=== PATIENT | female | born 1980 | race Caucasian/White ===

== ENCOUNTER 2016-04-24 07:04 | Inpatient (IN) | payer BC ==
[2016-04-24] MEDS ORDERED: ceFOXitin 2 GM IVPREMIX* 2 GM/50 ML BAG ONE (08:06)
[2016-04-24] MEDS ORDERED: Sodium Citrate/Citric Acid* 15 ML UDC ONE (08:06)
[2016-04-24] MEDS ORDERED: Morphine PF AMP (0.5MG/ML)* 5 MG/10 ML AMP ONE (08:09)
[2016-04-24] MEDS ORDERED: Midazolam* 1 MG/ML 5 ML VIAL (5 MG) ONE (08:09)
[2016-04-24] MEDS ORDERED: fentaNYL* 50 MCG/ML 2 ML VIAL (100 MCG VIAL) ONE (08:09)
[2016-04-24] MEDS ORDERED: KETAMINE HCL* 50 MG/ML 10 ML VIAL ONE (08:09)
[2016-04-24] MEDS ORDERED: Famotidine IV* 10 MG/ML 2 ML (20 mg) ONE (08:12)
[2016-04-24] MEDS ORDERED: ceFOXitin 2 GM IVPREMIX* 2 GM/50 ML BAG IVPB ONE (08:16)
[2016-04-24] MEDS ORDERED: Sodium Citrate/Citric Acid* 15 ML UDC PO ONE (08:17)
[2016-04-24 08:42] LABS: Hematocrit 34 % (35-47); Hemoglobin 11.3 g/dl (12.0-16.0); Mean Corpuscular HGB Conc 33 g/dl (31-36); Mean Corpuscular Hemoglobin 28 pg (27-31); Mean Corpuscular Volume 85 fL (80-97); Mean Platelet Volume 8 um3 (7.4-10.4); Red Blood Count 4.01 10^6/ul (4.0-5.4); Red Cell Distribution Width 15 % (10.5-15); White Blood Count 15.3 10^3/ul (3.5-10.8)
[2016-04-24] MEDS ORDERED: PROCHLORPERAZINE INJ 5 MG/ML 2 ML VIAL IV PRN ×2 (08:59→09:04)
[2016-04-24] MEDS ORDERED: Ondansetron INJ* 2 MG/ML VIAL IV PRN ×2 (08:59→09:04)
[2016-04-24] MEDS ORDERED: Scopolamine 1.5 mg* PATCH ONE (09:00)
[2016-04-24] MEDS ORDERED: Buffered Lidocaine 1% SYRIN* 3 ML/SYR SYRINGE INTRADERM ONE (09:02)
[2016-04-24] MEDS ORDERED: Famotidine IV* 10 MG/ML 2 ML (20 mg) IV ONE (09:02)
[2016-04-24] MEDS ORDERED: Naloxone* 0.4 MG/ML 1 ML VIAL IV PRN (09:04)
[2016-04-24] MEDS: Levothyroxine TAB* 50 MCG TAB PO SCH (09:12)
[2016-04-24] MEDS ORDERED: EPHEDrine (Pressors)* 50 MG/ML VIAL ONE (09:51)
[2016-04-24] MEDS ORDERED: Dexamethasone IV* 4 MG/ML 1 ML (4 MG) ONE (09:51)
[2016-04-24] MEDS ORDERED: Ondansetron INJ* 2 MG/ML VIAL ONE (09:51)
[2016-04-24] MEDS ORDERED: OXYTOCIN* 10 UNITS/ML 1 ML VIAL ONE (09:59)
[2016-04-24] MEDS: oxyCODONE/Acetamin 5/325 MG* TAB PO PRN ×3 (11:17→21:12)
[2016-04-24] MEDS: fentaNYL* 50 MCG/ML 2 ML VIAL (100 MCG VIAL) IV PRN ×2 (11:31→11:37)
[2016-04-24] MEDS: Heparin VIAL(*) 5000 UNITS/ML VIAL (FIVE THOUSAND) SUBCUT SCH (12:23)
[2016-04-24] MEDS ORDERED: Witch Hazel PAD* JAR TOPICAL PRN (13:02)
[2016-04-24] MEDS ORDERED: Glycerin ADULT SUPP PR PRN (13:02)
[2016-04-24] MEDS ORDERED: Zolpidem TAB* 5 MG PO PRN (13:02)
[2016-04-24] MEDS ORDERED: Acetaminophen TAB* 325 MG PO PRN (13:02)
[2016-04-24] MEDS ORDERED: Dibucaine 1% 28.35 GM TUBE PR PRN (13:02)
[2016-04-24] MEDS ORDERED: Morphine INJ* 10 MG/ML 1 ML SYRINGE ONE (13:07)
[2016-04-24] MEDS ORDERED: Morphine INJ* 10 MG/ML 1 ML SYRINGE IV PRN (13:09)
[2016-04-24] MEDS: Nystatin SUSPENSION* 100000 UNITS/ML 5 ML UDC PO SCH ×3 (15:13→21:11)
[2016-04-24] MEDS: Docusate CAP* 100 MG PO SCH ×2 (15:13→21:12)
[2016-04-24] MEDS: Ibuprofen TAB* 600 MG PO PRN ×2 (15:13→21:12)
[2016-04-24] MEDS ORDERED: diPHENhydraMINE PO* 25 MG ONE (17:22)
[2016-04-24] MEDS ORDERED: diPHENhydraMINE PO* 25 MG PO PRN (17:31)
[2016-04-24] MEDS ORDERED: Nalbuphine* 20 MG/ML 1 ML VIAL IV PRN (17:31)
[2016-04-24] MEDS: Simethicone CHEW TAB* 80 MG PO SCH ×2 (21:12)
[2016-04-25] MEDS ORDERED: oxyCODONE/Acetamin 5/325 MG* TAB PO PRN
[2016-04-25] MEDS: Heparin VIAL(*) 5000 UNITS/ML VIAL (FIVE THOUSAND) SUBCUT SCH ×2 (00:07→11:51)
--- NOTE | 2016-04-25 02:23 | OP ---
CONTINUATION ADDENDUM NOW INCLUDED ON THIS REPORT DATE OF OPERATION: 04/24/16 - ROOM #MCHOB-113 DATE OF : 80 SURGEON: Claudio Cano MD KNITTER HELPER: Dr. Roberts. ANESTHESIOLOGIST: Dr. Cooper. ANESTHESIA: Spinal. PRE-OP DIAGNOSIS: 40 weeks and 6 days gestation, history of a prior , spontaneous rupture of membranes, meconium. The patient elects for repeat C- section. POST-OP DIAGNOSIS: 40 weeks and 6 days gestation, history of a prior , spontaneous rupture of membranes, meconium. The patient elects for repeat C- section. OPERATIVE PROCEDURE: Repeat section. ESTIMATED BLOOD LOSS: 600 cc. URINE OUTPUT: 400 cc clear urine. FINDINGS: Viable male in the vertex presentation, meconium stained fluid. The baby was vigorous. The Apgars were 9 and 9. The uterus appeared normal. The ovaries and fallopian tubes appeared normal bilaterally. There was a contracted scar from the prior abdominoplasty. It was especially scarred in the midline. The patient reports a history of the scar opening postoperatively. COMPLICATIONS: None. COUNTS: Sponge, lap and needle count correct x2 and the patient was brought to recovery room awake and in stable condition with a Jensen catheter draining clear urine and sequential compression devices activated. DESCRIPTION OF PROCEDURE: The patient was brought to the operating room. Once spinal anesthesia was found to be adequate, a Jensen catheter was placed under sterile conditions. The patient was prepped and draped in the usual sterile fashion in the dorsal supine position with a leftward tilt. The spinal was tested with Allis clamps and found to be adequate. A Pfannenstiel skin incision was made. This was carried down to the underlying layer of fascia. The fascia was incised in the midline and the fascial incision was extended laterally using the Silva scissors. The fascia was grasped with the Delphine clamps and the rectus muscle was dissected using sharp and blunt dissection. The rectus muscle was in the midline. The peritoneum was identified, tented up and entered with the Metzenbaum scissors. The peritoneal incision was extended superiorly and anteriorly with good visualization of the bladder. The bladder blade was inserted. The vesicouterine peritoneum was identified and a bladder flap was created. The bladder blade was reinserted. A low flap transverse incision was made on the uterus to the level of the membrane. The uterine incision was extended bluntly. The infant was delivered atraumatically from the vertex presentation. The vertex was floating. The baby was vigorous. The cord was milked. The cord was clamped and then cut and the infant was handed off to the waiting webmethods consultant, Dr. Desir. Apgars were 9 and 9. The placenta was delivered. The uterus was exteriorized. Uterus was cleared of all clots and debris and the uterine incision was repaired using 0 Vicryl in a running lock fashion. A second layer of the same suture was used to imbricate and obtain excellent hemostasis. The ovaries and fallopian tubes were examined and found to be normal. There was a large amount of decidual reaction on the posterior surface of the uterus more so on the right than the left. The abdomen and pelvis were copiously irrigated with warm normal saline. The uterus was returned to the pelvis and the gutters were cleared of clots of debris and again the uterine incision was examined and found to be hemostatic. The peritoneum was closed using 3-0 Vicryl. The subfascial layer was examined and found to be hemostatic. The fascia was closed using 0 Vicryl. The subcutaneous tissue was irrigated. Any small bleeders were cauterized with the Bovie. CONTINUATION ADDENDUM: The lower end of the skin was found to be very scarred and contracted. The scar was undermined to try to free the skin as best as possible. Four interrupted sutures of 3-0 Vicryl were placed in the subcutaneous tissue to help close the space and reapproximate the skin. The skin was then closed with 4-0 Monocryl in a subcuticular fashion from each angle to the midline half way on both sides, so there were two subcu 4-0 Monocryl sutures that meet in the midline. Then, 8 jayant were placed, 2 at the right angle of the incision and the remaining 6 in the midline to also help reapproximate the skin edges because of the scarring on the bottom edge. Mastisol was applied. Steri- Strips were applied and then a dressing was applied. [id number]/CPS #: [id number] A- [id number]/CPS #: [id number] WILIAN
--- NOTE | 2016-04-25 02:57 | OP ---
OPERATIVE REPORT:* ADDENDUM: The fascia was closed using 0 Vicryl in a running locked fashion. The subcutaneous tissue was irrigated. Any small bleeders were cauterized with the Bovie. The lower end of the skin was found to be very scarred and contracted presumably from the prior surgery. The scar was undermined to try to free up on the skin as best as possible. Four interrupted sutures of 3-0 Vicryl were placed in the subcu tissue to help close the space and reapproximate the skin. The skin was then closed with 4-0 Monocryl in a subcuticular fashion from each angle to the midline half way on both sides, so there were two subcu 4-0 Monocryl sutures that meet in the midline. Then, 8 jayant were placed, 2 at the right angle of the incision and the remaining 6 in the midline to also help reapproximate the skin edges because of the scarring on the bottom edge. The bottom end of the incision was so contracted and so densely scarred down. Then, Mastisol was applied. Steri- Strips were applied where the subcu sutures were and then a pressure dressing was applied. [id number]/[facility] #: [id number] WILIAN
[2016-04-25] MEDS ORDERED: Famotidine TAB* 20 MG PO SCH (03:00)
[2016-04-25] MEDS: Ibuprofen TAB* 600 MG PO PRN ×4 (03:50→21:06)
[2016-04-25] MEDS: oxyCODONE/Acetamin 5/325 MG* TAB PO PRN ×4 (03:52→19:18)
[2016-04-25] MEDS: Levothyroxine TAB* 50 MCG TAB PO SCH (05:33)
[2016-04-25] MEDS ORDERED: Famotidine TAB* 20 MG PO PRN (05:42)
[2016-04-25 07:49] LABS: Hematocrit 30 % (35-47); Hemoglobin 9.8 g/dl (12.0-16.0); Mean Corpuscular HGB Conc 33 g/dl (31-36); Mean Corpuscular Hemoglobin 28 pg (27-31); Mean Corpuscular Volume 85 fL (80-97); Mean Platelet Volume 8 um3 (7.4-10.4); Red Blood Count 3.48 10^6/ul (4.0-5.4); Red Cell Distribution Width 15 % (10.5-15); White Blood Count 14.9 10^3/ul (3.5-10.8)
--- NOTE | 2016-04-25 08:04 | PN ---
Progress Note - Progress Note Note: Anesthesia duramorph followup -[facility] neuro ok some itching last PM -NV, VSS decent pain control. s/p CS continue oral meds
[2016-04-25] MEDS: Simethicone CHEW TAB* 80 MG PO SCH ×4 (08:52→21:06)
[2016-04-25] MEDS: Docusate CAP* 100 MG PO SCH ×3 (08:52→21:06)
[2016-04-25] MEDS: Ferrous Gluconate TAB* 324 MG TAB PO SCH ×3 (10:38→21:06)
[2016-04-25] MEDS: Nystatin SUSPENSION* 100000 UNITS/ML 5 ML UDC PO SCH ×4 (10:39→21:06)
[2016-04-25] MEDS ORDERED: Ferrous Gluconate TAB* 324 MG TAB ONE (14:58)
[2016-04-25 19:34] VITALS: BP 117/68
[2016-04-26] MEDS: oxyCODONE/Acetamin 5/325 MG* TAB PO PRN ×4 (00:08→13:22)
[2016-04-26] MEDS: Heparin VIAL(*) 5000 UNITS/ML VIAL (FIVE THOUSAND) SUBCUT SCH (00:08)
[2016-04-26] MEDS: Ibuprofen TAB* 600 MG PO PRN ×2 (04:13→12:42)
[2016-04-26] MEDS: Levothyroxine TAB* 50 MCG TAB PO SCH (06:19)
[2016-04-26] MEDS: Ferrous Gluconate TAB* 324 MG TAB PO SCH (09:03)
[2016-04-26] MEDS: Nystatin SUSPENSION* 100000 UNITS/ML 5 ML UDC PO SCH (09:03)
[2016-04-26] MEDS: Simethicone CHEW TAB* 80 MG PO SCH (09:03)
[2016-04-26] MEDS: Docusate CAP* 100 MG PO SCH (09:03)
[2016-04-27] MEDS ORDERED: Enoxaparin(*) 40 MG/0.4 ML SYR SUBCUT SCH (07:00)
[2016-04-27] MEDS ORDERED: Scopolomine PATCH Remove* 1 NOTE MISC PATCH OFF ONE (09:00)
== END 2016-04-26 15:39 | disposition home or self-care (01) | DRG 540 ==
LOC: MCHOBOUT 07:04 → MCHOB 07:39
PROVIDERS: ADMIT Obstetrics & Gynecology; ATTEND Obstetrics & Gynecology
PROC: 10D00Z1 Extraction of Products of Conception, Low, Open Approach (ICD-10-PCS; principal; 2016-04-24 08:39)
DX: O34.211 Maternal care for low transverse scar from previous cesarean delivery (principal); F32.9 Major depressive disorder, single episode, unspecified; O09.523 Supervision of elderly multigravida, third trimester; Z37.0 Single live birth; Z3A.40 40 weeks gestation of pregnancy; O48.0 Post-term pregnancy; O99.820 Streptococcus B carrier state complicating pregnancy; O26.893 Other specified pregnancy related conditions, third trimester; G43.909 Migraine, unspecified, not intractable, without status migrainosus; O99.343 Other mental disorders complicating pregnancy, third trimester; Z91.040 Latex allergy status; Z86.718 Personal history of other venous thrombosis and embolism; Z79.01 Long term (current) use of anticoagulants
CPT/HCPCS: 36415; 85025; 85027; 86850; 86900; 86901; A9270-GY; J0694; J1100; J1644; J2250; J2270; J2405; J2590; J3010

== ENCOUNTER 2017-06-06 16:28 | Observation (INO) | payer BC, OTHER ==
[2017-06-06] MEDS ORDERED: NS 0.9% 1000 ML* 1,000 ML IV ONE (17:46)
[2017-06-06] MEDS ORDERED: Heparin VIAL(*) 5000 UNITS/ML VIAL (FIVE THOUSAND) IV SCH ×2 (18:00→19:00)
[2017-06-06] MEDS ORDERED: Heparin DRIP 25,000 UNITS(*) 25,000 UNITS/500 ML BAG IV SCH ×2 (18:00→18:15)
[2017-06-06 18:15] LABS: ABS Basophils 0 10^3/ul (0-0.2); ABS Eosinophils 0.2 10^3/ul (0-0.6); ABS Lymphocytes 1.8 10^3/ul (1.0-4.8); ABS Monocytes 0.5 10^3/ul (0-0.8); ABS Neutrophils 5.7 10^3/ul (1.5-7.7); ABS Nucleated RBC 0 10^3/ul; Eosinophil % 2.1 % (0-6); Hematocrit 47 % (35-47); Hemoglobin 15.6 g/dl (12.0-16.0); Mean Corpuscular HGB Conc 33 g/dl (31-36); Mean Corpuscular Hemoglobin 30 pg (27-31); Mean Corpuscular Volume 90 fL (80-97); Nucleated Red Blood Cells % 0.1; Platelet Count 367 10^3/ul (150-450); Red Blood Count 5.18 10^6/ul (4.0-5.4); Red Cell Distribution Width 15 % (10.5-15); White Blood Count 8.2 10^3/ul (3.5-10.8)
[2017-06-06 18:34] LABS: EGFR Non-African American 93.1 (>60)
[2017-06-06] MEDS ORDERED: Iohexol 350* (CONTRAST) 500 ML MDV IV ONE (19:12)
--- NOTE | 2017-06-06 19:57 | RAD ---
Indication: Known PE with progressive symptoms. Contrast: Administered 70.3 ml of OMNIPAQUE 350 mg/ml CTA of the chest was performed after IV contrast administration. Coronal and sagittal reconstructed images were obtained. The pulmonary arterial tree is well opacified. There is a small pulmonary emboli in the lingular segment branch of the left upper lobe pulmonary artery. Filling defects are noted in the segmental branches of the right lower lobe pulmonary artery. No extension into the lobar or main pulmonary artery is noted. The aorta demonstrates no evidence of thoracic aortic dissection. The heart demonstrates no pericardial effusion. The trachea and major bronchi appear patent. Dependent changes are noted in the lung mcmahon. There is no mediastinal or hilar adenopathy. The axilla demonstrates no adenopathy. The visualized abdominal organs are unremarkable. IMPRESSION: Filling defects are noted in place segmental branch of the right lower lobe pulmonary artery as well as the lingular segmental branch of the left upper lobe pulmonary artery. There is no extension into the main or lobar pulmonary arteries.
[2017-06-06] MEDS ORDERED: Ondansetron INJ* 2 MG/ML VIAL IV PRN (20:45)
[2017-06-06] MEDS ORDERED: Acetaminophen TAB* 325 MG PO PRN (20:45)
--- NOTE | 2017-06-06 20:45 | RAD ---
Indication: Right neck pain evaluate for carotid artery dissection. CT of the brain was performed without IV contrast. Ventricular structures are midline. No midline shift is noted. The extra-axial spaces are unremarkable. There is no evidence of intracranial mass or hemorrhage. There is air-fluid level in the left maxillary sinus suggestive of left maxillary sinusitis. Contrast: Administered 80.0 ml of OMNIPAQUE 350 mg/ml CTA of the neck and head was performed after IV contrast administration. Coronal and sagittal reconstructed images were obtained. The origins of the great vessels are unremarkable. The right common carotid and left common carotid artery demonstrates no intimal wall thickening or plaque. Both internal carotid arteries appear normal in caliber. No evidence of carotid artery dissection is noted. The vertebral arteries demonstrate a separate origin of the left vertebral artery from the aortic arch. No significant stenosis is noted. Dominant right vertebral artery is noted. No evidence of vertebral artery dissection is noted. The soft tissues of the neck demonstrates scattered lymph nodes in the neck without abnormal adenopathy. The lung apices are grossly unremarkable. CTA of the head demonstrates normal bifurcation of the intracranial carotid arteries. A1 and M1 segments are unremarkable. No branch occlusion is noted. No aneurysmal dilatation is noted. No branch occlusion is noted. The basilar artery and posterior cerebral arteries are unremarkable with no evidence of branch occlusion or aneurysmal dilatation. IMPRESSION: No evidence of carotid artery dissection is noted. The cranial circulation demonstrates no aneurysmal dilatation. No evidence of branch occlusion is identified.
[2017-06-06] MEDS ORDERED: Melatonin (NF) 3 MG TAB PO PRN (20:48)
[2017-06-06] MEDS ORDERED: diPHENhydraMINE PO* 25 MG PO PRN (20:48)
[2017-06-06] MEDS: Rivaroxaban TAB(*) 15 MG PO SCH (22:39)
--- NOTE | 2017-06-06 22:51 | HP ---
HISTORY AND PHYSICAL: DATE OF ADMISSION: 06/06/17 PRIMARY CARE PROVIDER: None. ATTENDING PHYSICIAN WHILE IN THE HOSPITAL: Warren Villalta MD* (report dictated by Ame Sparks NP) CHIEF COMPLAINT: 1. Chest pain. 2. "I have PE." HISTORY OF PRESENT ILLNESS: Mrs. Macdonald is a 36-year-old female patient. She has a history of sarcoidosis, history of DVT in the past, she was on Xarelto for 2 years and states she has been off for now 2 years as well. She states that she has been having right leg pain intermittently for the last couple months and she has been delaying getting care and having it checked out. She was hoping that it will get better on its own and she thought may be it was muscle cramp; however, she felt that because it was not getting any better, she should be evaluated for DVT because she has had one in the past. She went to [facility] last night, told them that she was having leg pain. She said that she also in the last week or so has been having difficulty taking a deep breath. It has been hurting. She has been having sharp, stabbing pain in the right side. There has been tightness in her right neck. She has been having some dyspnea with exertion. They were concerned. They did ultrasound of the lower extremities. There was no DVT there noted, but they did do a CTA of the chest, which did show blood clots. It showed PE. She was started on heparin drip there. Unfortunately, she did sign out AMA. She was given 1 dose of Xarelto and she signed out because she needed child life specialist. She came back to the ER today because she knew she had the PE. She said that she wanted to be admitted now. She has child life specialist. She states that she has been having the intermittent chest discomfort and again dyspnea with exertion and she was concerned because she had not been on any blood thinners. So, she came in to the ED. Again, here was found to have bilateral PEs in the lower lobes of left and the right. She said she does have a significant family history of factor V Leiden and she has had a DVT in the past. She denies any recent trips or travel. No trauma. No recent surgeries. She was again evaluated here and PEs were found and we were asked to evaluate for admission. PAST MEDICAL HISTORY: Significant for: 1. Sarcoidosis. 2. History of DVT. PAST SURGICAL HISTORY: 1. She has had . 2. She has had a breast augmentation and she also had stomach augmentation as well. HOME MEDICATIONS: According to the list that she provided include: 1. Benadryl 25 mg p.o. daily as needed. 2. Melatonin 3 mg at bedtime as needed. 3. Ibuprofen 200 mg every 6 hours as needed. ALLERGIES TO MEDICATIONS: Include LATEX. FAMILY HISTORY: She said her father did have a PE and she states she has siblings with factor V and to her knowledge, father does not have it. She states she thinks she has been tested negative previously. She states her mother is healthy. SOCIAL HISTORY: She does smoke. She smokes about 6 cigarettes 3 times a week. She occasionally drinks alcohol. She does not wish to appoint a healthcare proxy at this point. 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 REVIEW OF SYSTEMS: There is no documented fever. She denied having any significant weight change. There was no double vision. She denies having any ear discharge. There is no rhinorrhea. No sore throat. There is chest pain from my HPI. She states it hurts to take a deep breath. She denies having any abdominal pain. There was no nausea. No vomiting. There is no dysuria. There is no frequency. There was no seizure. There was no loss of consciousness. No pruritus and no skin ulcerations. Review of 14 systems was completed, all others negative. PHYSICAL EXAMINATION GENERAL: At this time, Mrs. Macdonald is a 36-year-old female patient. She appears to be well nourished, well developed. She is sitting in the ED stretcher. She does not appear to be in any acute distress. VITAL SIGNS: Blood pressure 122/72 with a pulse 81, respirations 18, O2 sat 99% , temperature 98.8. HEENT: Head: Atraumatic, normocephalic. Eyes: EOMs are intact. Sclerae anicteric and not pale. Throat: Oral mucosa appears to be moist. No oropharyngeal erythema. NECK: Supple. LUNGS: Clear to auscultation bilaterally. There are no wheezes, rales, or rhonchi. HEART: Sounds S1, S2. Regular rate and rhythm. No murmurs, rubs, or gallops. ABDOMEN: Soft, it was flat, it was nontender. Bowel sounds were present. EXTREMITIES: Pulses were 2+ throughout. She is moving all 4 extremities with 5 /5 strength. NEUROLOGIC: She is awake. She is alert. She is oriented x3. Tongue is midline. Lumber Press Operator were equal. No gross focal deficits. SKIN: Intact. LABORATORY DATA/DIAGNOSTIC STUDIES: WBC of 8.2, RBC of 5.18, hemoglobin of 15.6, hematocrit of 47, platelet count of 367. The PTT was 33. She had a sodium of 138, potassium 3.6, chloride of 104, bicarb of 25, BUN 8, creatinine 0.71, glucose 90. Lactate 1.1. Calcium 9.4. Total bili 0.5, AST 14, ALT 10, alk phos 45. Troponin 0. Repeat troponin was 0. Albumin 4.4. She did have a head CTA obtained today, impression: No evidence of carotid artery dissection. The cranial circulation demonstrates no aneurysmal dilation. No evidence of branch occlusion was identified. She had chest thorax CTA, which revealed filling defects are noted in the segmental branch of the right lower lobe, pulmonary artery as well as the lingular segment, total branch of the left upper lobe pulmonary artery, there is no extension into the main or lobar pulmonary arteries. She did have an EKG obtained today as well, which showed a normal sinus rhythm with a rate of 75, no ST elevations or T wave inversions. Old medical records were reviewed. ASSESSMENT AND PLAN: Mrs. Macdonald is a 36-year-old female patient coming in to the ED today with complaints of chest discomfort, dyspnea on exertion. On evaluation, was found to have pulmonary embolism, which she knew about from [facility]. She will be admitted under observation status for: 1. Pulmonary embolism. At this point again, she is hemodynamically stable. She was started on heparin drip here in our ER. I am going to stop the drip, wait 30 minutes and start her on Xarelto 15 mg p.o. b.i.d. She is probably going to need to be on lifelong anticoagulation. 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 She said that she will follow up when she is discharged as she should be tested again for a hypercoagulable state. Unfortunately, I cannot send it off now due to the recent heparin. I will get an echo. I will cycle her trops. 2. Sarcoidosis. It is in remission. We will continue to follow. 3. History again of deep venous thrombosis. She is going to be placed on therapeutic Xarelto. 4. Fluids, electrolytes, and nutrition. She can have a regular diet. 5. Code status. Full code. TIME SPENT: Time spent on admission 60 minutes, greater than half the time spent [id number] with the patient obtaining my history and physical; other half time spent going over the plan of care with the patient and implementing plan of care. I did discuss the plan of care with my attending, Dr. Villalta; he is in agreement. AME SPARKS NP [id number]/[facility] #: [id number] WILIAN
[2017-06-07 06:08] LABS: ABS Basophils 0.1 10^3/ul (0-0.2); ABS Eosinophils 0.2 10^3/ul (0-0.6); ABS Lymphocytes 2.6 10^3/ul (1.0-4.8); ABS Monocytes 0.6 10^3/ul (0-0.8); ABS Neutrophils 4.1 10^3/ul (1.5-7.7); ABS Nucleated RBC 0 10^3/ul; Eosinophil % 2.9 % (0-6); Hematocrit 39 % (35-47); Hemoglobin 13.1 g/dl (12.0-16.0); Lymphocyte % 34.8 % (25-47); Mean Corpuscular HGB Conc 33 g/dl (31-36); Mean Corpuscular Hemoglobin 30 pg (27-31); Mean Corpuscular Volume 90 fL (80-97); Mean Platelet Volume 6.6 um3 (7.4-10.4); Nucleated Red Blood Cells % 0; Platelet Count 321 10^3/ul (150-450); Red Blood Count 4.38 10^6/ul (4.0-5.4); Red Cell Distribution Width 16 % (10.5-15); White Blood Count 7.6 10^3/ul (3.5-10.8)
[2017-06-07 06:27] LABS: EGFR Non-African American 94.7 (>60)
[2017-06-07 06:35] LABS: INR 1.26 (0.77-1.02)
[2017-06-07] MEDS: Rivaroxaban TAB(*) 15 MG PO SCH (08:26)
--- NOTE | 2017-06-07 09:21 | ECHO ---
Patient: BRITTNEY WELSH [facility] Rec#: [id number] : 1980 Date: 06/07/2017 Age: 36y Height: 167.64 cm / 66.0 in Weight: 79.38 kg / 175.0 lbs Sex: F BSA: 1.89 Room#: 431 Admit Date#: 06/06/2017 Type: Inpatient Referring: Todd Tena NP Reading: Kota Trinidad MD Vamp Wetter: Homa Woodward RDCS CC: Angelic Carbajal, DO Transthoracic Echocardiogram Indication: Pulmonary Embolism BP: 124/68 HR: 75 Rhythm: NSR Findings History: DVT with PE, sarcoidosis. Technical Comments: The study quality is good. Completed at 0845. Left Ventricle: The left ventricular chamber size is normal. There is no left ventricular hypertrophy. Left ventricular systolic function is at the lower limits of normal. VIsually estimated LVEF is 50 %. Normal left ventricular diastolic filling is observed. Left Atrium: The left atrium is mildly dilated. Right Ventricle: Moderator Band present. The right ventricle is slightly dilated. The right ventricular global systolic function is normal. Right Atrium: The right atrial cavity size is normal. Aortic Valve: The aortic valve is trileaflet. There is no evidence of aortic valve thickening. There is no evidence of aortic regurgitation. There is no evidence of aortic stenosis. Mitral Valve: The mitral valve leaflets do not appear thickened. There is a trace of mitral regurgitation. There is no evidence of mitral stenosis. Tricuspid Valve: The tricuspid valve leaflets are normal. There is trace to mild tricuspid regurgitation. The right ventricular systolic pressure is estimated at 26 mmHg. No pulmonary hypertension is noted. There is no tricuspid stenosis. Pulmonic Valve: The pulmonic valve appears normal. There is mild pulmonic regurgitation. There is no pulmonic stenosis. Pericardium: There is no significant pericardial effusion. Aorta: There is no dilatation of the ascending aorta. There is no dilatation of the aortic arch. The aortic root is normal in size. Pulmonary Artery: The main pulmonary artery appears normal. Venous: The inferior vena cava is dilated. There is a greater than 50% respiratory change in the inferior vena cava dimension. Conclusions The left ventricular chamber size is normal. Left ventricular systolic function is at the lower limits of normal. VIsually estimated LVEF is 50 %. Normal left ventricular diastolic filling is observed. The right venricle is slightly increased in size with normal systolic function. The left atrium is mildly dilated. No significant valvular disease: There is a trace of mitral regurgitation. There is trace to mild tricuspid regurgitation. There is mild pulmonic regurgitation. Compared to report of study from 03/29/2007 overall LV systolic function is less (was visually estimated at 65%), the mitral and pulmonic regurgitation are now seen , but not significant. Measurements Name Value Normal Range RVIDd (AP) 2D 3 cm (0.9 - 2.6) RVDdMajor (2D) 4.1 cm (2.2 - 4.4) RAd ISD 4CH 4.9 cm (3.4 - 4.9) RA (A4C)W 4.1 cm (2.9 - 4.6) IVSd (2D) 1 cm (0.6 - 1) LVPWd (2D) 0.9 cm (0.6 - 1) LVIDd (2D) 4.9 cm (3.6 - 5.4) LVIDs (2D) 3.1 cm - LV FS (2D) 36 % (25 - 45) EF Teichholz (2D) 66 % - Aortic Annulus 1.9 cm (1.4 - 2.6) Ao root diameter (2D) 2.5 cm (2.1 - 3.5) Ascending Ao 2.5 cm (2.1 - 3.4) Aortic arch 2.2 cm (1.8 - 3.4) LA dimension (AP) 2D 3.8 cm (2.3 - 3.8) LAd ISD 4CH 4.8 cm (2.9 - 5.3) LA ISD 4CH W 4.6 cm (2.5 - 4.5) Name Value Normal Range LA ESV SP 4CH (A/L) 68 ml - LA ESV SP 2CH (A/L) 56 ml - LA ESV BP (A/L) 66 ml - LA ESV BP (A/L) index 35 ml/m2 - LA ESV SP 4CH (MOD) 61 ml - LA ESV SP 2CH (MOD) 50 ml - Name Value Normal Range MV E-wave Vmax 0.93 m/sec - MV deceleration time 213.1 msec - MV A-wave Vmax 0.43 m/sec - MV E:A ratio 2.19 ratio - LV septal e' Vmax 0.11 m/sec - LV lateral e' Vmax 0.14 m/sec - LV E:e' septal ratio 8.45 ratio - LV E:e' lateral ratio 6.64 ratio - Name Value Normal Range AV Vmax 1.31 m/sec - AV VTI 29.07 cm - AV peak gradient 6.9 mmHg - AV mean gradient 3.91 mmHg - LVOT Vmax 1.11 m/sec - LVOT VTI 23.33 cm - LVOT peak gradient 5 mmHg - LVOT mean gradient 2.7 mmHg - KANE Vmax 0.9 m/sec - Name Value Normal Range TR Vmax 2.1 m/sec - TR peak gradient 18 mmHg - RAP 8 mmHg - RVSP 26 mmHg - IVC diameter 2.4 cm - Name Value Normal Range PV Vmax 0.85 m/sec - PV peak gradient 2.94 mmHg -
[2017-06-07 13:06] VITALS: BP 117/72
--- NOTE | 2017-06-07 13:38 | ED ---
Donnell Jeffrey Nilda, scribed for Maksim Carmen MD on 06/06/17 at 1739 . HPI Chest Pain - HPI Summary HPI Summary: This patient is a 36 year old F presenting to [facility] with a chief complaint of constant CP with R-neck burning pain since last night. The patient rates the pain 4/10 in severity. Symptoms aggravated by deep breaths and alleviated by nothing. Patient reports SOB (past few months), palpitations, and mild blurry vision. Pt states 1 week ago she had severe gas cramps for a few hours. Patient denies speech impairment, confusion, and unsteadiness. Pt states yesterday she was at [place] where she was treated with Heparin at 1800 for a few hours, which aggravated neck pain. Pt states she was Dx with PE on right last night. She states she s/o AMA from [place] to take care of her kids and was given Xarelto (taken at 0050). She denies recent sick contacts and recent prolonged travel. PMHx includes DVT right leg, Sarcoidosis, and PVCs. Pt was on Xarelto a few years ago for DVT which was discontinued. Medications include Paraguard IUD. - History of Current Complaint Chief Complaint: EDBleedingDisorder Time Seen by Provider: 06/06/17 17:05 Hx Obtained From: Patient Hx Last Menstrual Period: 10/11/14 Onset/Duration: Started Days Ago, Still Present Timing: Constant Current Severity: Moderate Pain Intensity: 4 Pain Scale Used: 0-10 Numeric Character: Burning, Fast Aggravating Factor(s): Deep Breaths Alleviating Factor(s): Nothing Associated Signs and Symptoms: Positive: Other: - R-neck pain, gas cramps, SOB, mild blurry vision; negative speech impairment, confusion, unsteadiness - Allergy/Home Medications Allergies/Adverse Reactions: Allergies Allergy/AdvReac Type Severity Reaction Status Date / Time latex Allergy Severe Anaphylatic Verified 06/06/17 16:36 Shock Home Medications: Home Medications Ibuprofen TAB* [Advil TAB*] 200 mg PO Q6H PRN 06/06/17 [History Confirmed ] Melatonin (NF) [Meladox] 3 mg PO BEDTIME PRN 06/06/17 [History Confirmed ] diPHENhydraMINE PO* [Benadryl PO 25 MG TAB*] 25 mg PO DAILY PRN 06/06/17 [ History Confirmed 06/06/17] PMH/Surg Hx/FS Hx/Imm Hx Endocrine/Hematology History: Reports: Hx Thyroid Disease - Synthroid 50mcg daily Denies: Hx Diabetes - Gestational Cardiovascular History: Reports: Hx Deep Vein Thrombosis Denies: Hx Hypertension, Hx Pacemaker/ICD, Hx Peripheral Vascular Disease History: Denies: Hx Dialysis, Hx Renal Disease Musculoskeletal History: Denies: Hx Arthritis, Hx Osteoporosis Sensory History: Denies: Hx Cataracts, Hx Contacts or Glasses, Hx Glaucoma, Hx Hearing Aid Opthamlomology History: Denies: Hx Cataracts, Hx Contacts or Glasses, Hx Glaucoma Neurological History: Denies: Hx Headaches, Hx Seizures, Hx Transient Ischemic Attacks (TIA) Psychiatric History: Reports: Hx Depression Denies: Hx Anxiety, Hx Panic Disorder - Surgical History Surgery Procedure, Year, and Place: L5-S1 LAMINECTOMY AND DISCECTOMY 01/02/20111994 EXOSTOSIS- REMOVAL OF GROWTH ON FEMUR (GROUND OFF OF BONE), 12/24. Popiteal DVT 05/21/14, 2012- tummy tuck and breast lift, tonsillectomy and septo plasty. Infectious Disease History: No Infectious Disease History: Denies: Traveled Outside the [place] in Last 30 Days - Family History Known Family History: Positive: Hypertension, Other - PE (father), [place] - Social History Occupation: Employed Full-time Lives: With Family Alcohol Use: Occasionally Alcohol Amount: 1 glass of wine with dinner Substance Use Type: Reports: None Smoking Status (MU): Light Every Day Tobacco Smoker Type: Cigarettes Length of Time of Smoking/Using Tobacco: smokes 2-3 a week Review of Systems Negative: Fever, Chills Positive: Blurred Vision. Negative: Erythema Negative: Sore Throat Positive: Chest Pain Positive: Shortness Of Breath. Negative: Cough Positive: Abdominal Pain - 1 week ago, resolved. Negative: Vomiting, Nausea Negative: dysuria, hematuria Positive: Other - burning neck pain. Negative: Myalgia, Edema Negative: Rash Neurological: Other - negative dizziness, unsteadiness, speech impairment, confusion All Other Systems Reviewed And Are Negative: Yes Physical Exam - Summary Physical Exam Summary: Constitutional: Well-developed, Well-nourished, Alert. (-) Distressed Skin: Warm, Dry HENT: Normocephalic; Atraumatic Eyes: Conjunctiva normal Neck: Musculoskeletal ROM normal neck. (-) JVD, (-) Stridor, (-) Tracheal deviation Cardio: Rhythm regular, rate normal, Heart sounds normal; Intact distal pulses; The pedal pulses are 2+ and symmetric. Radial pulses are 2+ and symmetric. (-) Murmur Pulmonary/Chest wall: Effort normal. (-) Respiratory distress, (-) Wheezes, (-) Rales Abd: Soft, (-) Tenderness, (-) Distension, (-) Guarding, (-) Rebound Musculoskeletal: (-) Edema Lymph: (-) Cervical adenopathy Neuro: Alert, Oriented x3 Psych: Mood and affect Normal Triage Information Reviewed: Yes Vital Signs On Initial Exam: Initial Vitals Temp Pulse Resp BP Pulse Ox 98.8 F 110 16 150/86 98 06/06/17 16:33 06/06/17 16:33 06/06/17 16:33 06/06/17 16:33 06/06/17 16:33 Vital Signs Reviewed: Yes Diagnostics - Vital Signs Vital Signs Temp Pulse Resp BP Pulse Ox 06/06/17 17:22 92 16 126/86 100 06/06/17 17:00 109 23 99 06/06/17 16:53 98 15 137/80 98 06/06/17 16:52 103 11 98 06/06/17 16:33 98.8 F 110 16 150/86 98 - Laboratory Result Diagrams: 06/06/17 17:45 06/06/17 17:45 Lab Statement: Any lab studies that have been ordered have been reviewed, and results considered in the medical decision making process. - CT CTA Chest/Thorax CT Interpretation Completed By: Radiologist - Filling defects are noted in place segmental branch of the right lower lobe pulmonary artery as well as the lingular segmental branch of the left upper lobe pulmonary artery. There is no extension into the main or lobar pulmonary arteries. Dr. Carmen has reviewed this report. CTA Head CT Interpretation Completed By: Radiologist - No evidence of carotid artery dissection is noted. The cranial circulation demonstrates no aneurysmal dilatation. No evidence of branch occlusion is identified. Dr. Carmen has reviewed this report. - EKG 1748 Cardiac Rate: NL - 72 bpm EKG Rhythm: Sinus Rhythm EKG Interpretation: no STEMI Chest Pain Course/Dx - Course Course Of Treatment: 35 mins CCT. Assessment/Plan: Pt has PE (nonsaddle). - Diagnoses Provider Diagnoses: Pulmonary embolism - Provider Notifications Discussed Care Of Patient With: Todd Tena - Hospitalist Time Discussed With Above Provider: 20:50 Instructed by Provider To: Admit As Inpatient - Critical Care Time Critical Care Time: 30-74 min - 35 mins CCT Discharge - Sign-Out/Discharge Documenting (check all that apply): Discharge/Admit/Transfer - Discharge Plan Condition: Stable Disposition: ADMITTED TO [facility] documentation as recorded by the Donnell acuna Nilda accurately reflects the service I personally performed and the decisions made by , Maksim Carmen MD.
--- NOTE | 2017-06-07 22:55 | DS ---
DISCHARGE SUMMARY: DATE OF ADMISSION: 06/06/17 DATE OF DISCHARGE: 06/07/17 PRINCIPAL DISCHARGE DIAGNOSIS: Pulmonary emboli. SECONDARY DISCHARGE DIAGNOSES: 1. Sarcoidosis. 2. History of deep venous thrombosis. DISCHARGE MEDICATIONS: 1. Xarelto 15 mg b.i.d. for 21 days followed by 20 mg daily. 2. Melatonin 3 mg q.h.s. p.r.n. insomnia. 3. Benadryl 25 mg daily p.r.n. itching or allergy. PHYSICAL EXAMINATION AT THE TIME OF DISCHARGE: Temperature 97.8, heart rate 74 , respiratory rate 16, pulse ox 100% on room air, blood pressure 117/72. General: Alert, well-appearing female, in no distress. She is able to speak in full sentences and uses no accessory muscles. HEENT: Pupils equal, round, and reactive to light. No conjunctival injection. Moist mucosa. Neck: No JVP. No cervical lymphadenopathy. Chest: Regular rate and rhythm. No parasternal heaves or lifts. No murmurs. Chest: Lungs clear bilaterally. Abdomen: Soft, nontender, nondistended. No guarding, no rebound. Extremities: No lower extremity edema. The left and right calves are equal in size. HOSPITAL COURSE BY PROBLEM: 1. PE. A CT angiogram was obtained and showed filling defect in the segmental branch of the right lower lobe PA as well as the lingular segment branch of the left upper lobe PA with no extension into the main or lobar pulmonary arteries. She had no symptoms from this. She simply came to the emergency department because she had recently been diagnosed with a DVT at an outside hospital and she was concerned that she had a PE. A CT angiogram as above did confirm such. She had no oxygen requirement. She was not tachycardic and an echocardiogram showed mild RV dilation. She was given Lovenox in the emergency department and then transitioned to Xarelto, which she tolerated well during this admission. Interestingly, she does have history of DVT several years ago that was thought to be associated with surgery and she was on Xarelto at that time for 2 years, but was discontinued by her base engineer. She has a strong family history of thromboembolism. Her father recently had a saddle embolism with no provoking factors and her sister also has had unprovoked DVT and PE. She has been worked up for Factor V Leiden deficiency and reportedly tested negative. She follows with a base engineer in [place]. She has a Hematology followup scheduled for next month and agrees to keep this appointment. She should be continued to be worked up for a hypercoagulable state given that she had no associated provoking factors; however, she does smoke, which may be contributing. I discussed this extensively with her. 2. Tobacco abuse. Again, this may have contributed to her PE and may be the only provoking factor. She agrees to work on quitting. 3. Sarcoidosis. She says this was diagnosed by bronchoscopy. We do not have these records here, but she has no evidence of flare at this admission radiographically or clinically. DISPOSITION: Ms. Macdonald was discharged to home on 06/07/17. She was instructed to return to the emergency department should she develop any swelling , shortness of breath, palpitations, syncope, chest pain, or bleeding. She has a followup with her base engineer next month. [id number]/[facility] #: [id number] MTDD
== END 2017-06-07 14:27 | disposition home or self-care (01) ==
LOC: ED 16:28 → MEDTELE 20:33
PROVIDERS: ADMIT Internal Medicine; ATTEND Internal Medicine
DX: I26.99 Other pulmonary embolism without acute cor pulmonale (principal); R07.9 Chest pain, unspecified; D86.9 Sarcoidosis, unspecified; Z86.718 Personal history of other venous thrombosis and embolism; I51.7 Cardiomegaly; Z79.01 Long term (current) use of anticoagulants; Z79.899 Other long term (current) drug therapy; F17.210 Nicotine dependence, cigarettes, uncomplicated; R06.09 Other forms of dyspnea
CPT/HCPCS: 36415; 70496; 70498; 71275; 80048; 80053; 83605; 84484; 85025; 85610; 85730; 93005; 93306; 96365; 96375; 99291; G0378; J1644; Q9967

== ENCOUNTER 2020-08-17 07:45 | Inpatient (IN) ==
[2020-08-19] MEDS ORDERED: ceFOXitin 2 GM IVPREMIX 2 GM/50 ML BAG IVPB ONE (21:54)
[2020-08-20] MEDS ORDERED: Lactated Ringers 1000 ml BAG 1,000 ML IV SCH ×2 (06:00→10:00)
[2020-08-20] MEDS ORDERED: Buffered Lidocaine 1% SYRIN 1 ml INTRADERM ONE (06:00)
[2020-08-20] MEDS ORDERED: Sodium Citrate/Citric Acid LIQ 15 ML UDC PO ONE (06:00)
[2020-08-20 06:46] LABS: ABS Basophils 0.1 10^3/ul (0-0.2); ABS Eosinophils 0.1 10^3/ul (0-0.6); ABS Lymphocytes 1.8 10^3/ul (1.0-4.8); ABS Monocytes 0.9 10^3/ul (0-0.8); ABS Neutrophils 9.3 10^3/ul (1.5-7.7); Eosinophil % 1.1 %; Hematocrit 35 % (35-47); Hemoglobin 11.5 g/dL (12.0-16.0); Lymphocyte % 14.6 %; Mean Corpuscular HGB Conc 33 g/dL (31-36); Mean Corpuscular Hemoglobin 28 pg (27-31); Mean Corpuscular Volume 84 fL (80-97); Mean Platelet Volume 8.3 fL (7.4-10.4); Platelet Count 318 10^3/uL (150-450); Red Blood Count 4.14 10^6 /uL (3.70-4.87); Red Cell Distribution Width 21 % (10-15); White Blood Count 12.2 10^3/uL (3.5-10.8)
[2020-08-20 07:01] LABS: Activated Partial Thrombo Time 27.6 seconds (26.0-38.0); INR 0.94 (0.86-1.15)
[2020-08-20] MEDS ORDERED: Morphine PF AMP (0.5MG/ML) 5 MG/10 ML AMP ONE (07:35)
[2020-08-20 07:40] LABS: Urine Benzodiazepine Screen None Detected (None Detect); Urine Cannabinoids Screen Presumptive Positive (None Detect); Urine Opiates Screen None Detected (None Detect)
[2020-08-20] MEDS ORDERED: Phenylephrine 40 mcg/mL 10mL (400mcg) SYRINGE ONE ×2 (07:46→08:31)
[2020-08-20] MEDS ORDERED: EPHEDrine (Pressors) 50 MG/ML VIAL ONE (08:22)
[2020-08-20] MEDS ORDERED: Oxytocin 10 UNITS/ML 1 ML VIAL ONE (08:39)
[2020-08-20 08:58] LABS: Urine Appearance Clear; Urine Bilirubin Negative (Negative); Urine Blood 2+ (Negative); Urine Color Yellow; Urine Glucose Negative (Negative); Urine Ketones Negative (Negative); Urine Nitrite Negative (Negative); Urine Protein Negative (Negative); Urine Urobilinogen Negative (Negative)
[2020-08-20] MEDS ORDERED: Acetaminophen IV 1 GM/100ML 100 ML IV ONE (09:05)
[2020-08-20] MEDS ORDERED: Naloxone 0.4 mg VIAL 0.4 mg/ml 1 ml VIAL IV PRN ×2 (09:11→09:52)
[2020-08-20] MEDS ORDERED: DiMENhydriNATE IV 50 mg/ml 1 ml VIAL IV PUSH PRN (09:11)
[2020-08-20 09:12] LABS: Urine Bacteria Absent (Absent); Urine Red Blood Cell 2+(6-10/hpf) (Absent); Urine Squamous Epithelial Cell Present (Absent); Urine White Blood Cell Absent (Absent)
[2020-08-20] MEDS ORDERED: Witch Hazel PAD JAR TOPICAL PRN (09:35)
[2020-08-20] MEDS ORDERED: Glycerin ADULT 2.4 gm SUPP PR PRN (09:35)
[2020-08-20] MEDS ORDERED: Dibucaine 1% OINT 28.35 GM TUBE PR PRN (09:35)
[2020-08-20] MEDS ORDERED: Ondansetron 4 mg VIAL 2 MG/ML 2 ml VIAL IV PRN (09:52)
[2020-08-20] MEDS ORDERED: diPHENhydraMINE IV 50 MG/ML 1 ml VIAL (BENADRYL) IV PRN (09:53)
[2020-08-20] MEDS ORDERED: Acetaminophen IV 1 GM/100ML 100 ML IV SCH (15:00)
[2020-08-20] MEDS: Acetaminophen IV 1 GM/100ML 100 ML IV SCH ×2 (15:14→21:08)
[2020-08-21 08:44] LABS: ABS Basophils 0.1 10^3/ul (0-0.2); ABS Eosinophils 0.1 10^3/ul (0-0.6); ABS Lymphocytes 2.2 10^3/ul (1.0-4.8); ABS Monocytes 0.9 10^3/ul (0-0.8); ABS Neutrophils 9.8 10^3/ul (1.5-7.7); Hematocrit 36 % (35-47); Hemoglobin 11.6 g/dL (12.0-16.0); Lymphocyte % 16.9 %; Mean Corpuscular HGB Conc 33 g/dL (31-36); Mean Corpuscular Hemoglobin 28 pg (27-31); Mean Corpuscular Volume 85 fL (80-97); Mean Platelet Volume 7.5 fL (7.4-10.4); Platelet Count 332 10^3/uL (150-450); Red Blood Count 4.21 10^6 /uL (3.70-4.87); Red Cell Distribution Width 21 % (10-15); White Blood Count 13.1 10^3/uL (3.5-10.8)
[2020-08-22 08:38] VITALS: BP 109/65
== END 2020-08-22 14:45 | disposition home or self-care (01) | DRG 540 ==
LOC: MCHOB 08-20 06:08
PROVIDERS: ADMIT Obstetrics & Gynecology; ATTEND Obstetrics & Gynecology